=== PATIENT | female | born 2000 | race Caucasian/White ===

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

== ENCOUNTER 2020-02-01 23:04 | Emergency (ER) | payer MEDICAID ==
[~2020-02-01] VITALS: Ht 165.1 cm; Wt 66.3 kg
[2020-02-01 23:13] VITALS: BP 106/70
--- NOTE | 2020-02-01 23:19 | NUR ---
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
== END 2020-02-01 23:21 ==
LOC: ED 23:10
DX: M54.5 Low back pain (principal); Z53.21 Procedure and treatment not carried out due to patient leaving prior to being seen by health care provider

== ENCOUNTER 2020-02-01 23:31 | Outpatient (CLI) | payer MEDICAID ==
[~2020-02-01] VITALS: Ht 175.3 cm; Wt 66.0 kg
[2020-02-02 00:01] LABS: MICROSCOPIC INDICATED
[2020-02-02 00:09] LABS: AMPHETAMINE SCREEN, URINE Negative (Negative); BARBITURATE SCREEN, URINE Negative (Negative); BENZODIAZEPINE SCREEN, URINE Negative (Negative); CANNABINOID SCREEN, URINE Negative (Negative); COCAINE SCREEN, URINE Negative (Negative); METHADONE SCREEN, URINE Negative (Negative); OPIATE SCREEN, URINE Negative (Negative)
== END 2020-02-02 01:20 | disposition home or self-care (01) ==
LOC: LDOP 23:31
PROVIDERS: ATTEND Obstetrics & Gynecology Female Pelvic Medicine and Reconstructive Surgery
DX: Z34.93 Encounter for supervision of normal pregnancy, unspecified, third trimester (principal); Z3A.33 33 weeks gestation of pregnancy
CPT/HCPCS: 59025; 80307; 81001; 87086

== ENCOUNTER 2020-02-02 01:26 | Emergency (ER) | payer MEDICAID | END 2020-02-02 01:38 | LOC: ED 01:30 | DX: M54.9 Dorsalgia, unspecified (principal); Z53.21 Procedure and treatment not carried out due to patient leaving prior to being seen by health care provider | CPT/HCPCS: 59025 ==

== ENCOUNTER 2020-03-17 13:43 | Inpatient (IN) | payer MEDICAID ==
[~2020-03-17] VITALS: Ht 175.3 cm; Wt 69.1 kg
[2020-03-17 19:30] VITALS: BP 125/78
[2020-03-17] MEDS ORDERED: CALCIUM CARBONATE 500 MG TAB.CHEW PO PRN (21:30)
[2020-03-17] MEDS ORDERED: FENTANYL PF 100 MCG/2ML IV PRN (21:30)
[2020-03-17] MEDS ORDERED: METOCLOPRAMIDE 5 MG/ML, 2ML IVPush PRN (21:30)
[2020-03-17] MEDS ORDERED: SODIUM CITRATE/CITRIC ACID 30 ML UDC PO PRN (21:30)
[2020-03-17] MEDS: D5%-LACTATED RINGERS 1,000 ML IV SCH (21:30)
[2020-03-17] MEDS ORDERED: ONDANSETRON 2MG/ML, 2ML IVPush PRN (21:30)
[2020-03-17] MEDS ORDERED: TERBUTALINE 1 MG/ML, 1ML SQ PRN (21:30)
[2020-03-17] MEDS ORDERED: OXYTOCIN 30U/ 0.9% NaCL 500ML 500 ML IV ONE (21:30)
[2020-03-17] MEDS ORDERED: TERBUTALINE 1 MG/ML, 1ML IVPush PRN (21:30)
[2020-03-17] MEDS ORDERED: MISOPROSTOL 25 MCG TABLET VG PRN (21:30)
[2020-03-17] MEDS ORDERED: PLEASE ENTER HEIGHT AND WEIGHT MC SCH (21:30)
[2020-03-17] MEDS ORDERED: LIDOCAINE 1%, 20ML ONE (21:33)
[2020-03-17] MEDS ORDERED: NEWBORN KIT ONE (21:33)
[2020-03-17] MEDS ORDERED: MISOPROSTOL 25 MCG TABLET ONE (21:33)
[2020-03-17] MEDS ORDERED: MISOPROSTOL 200 MCG TABLET ONE (21:33)
[2020-03-17] MEDS ORDERED: OXYTOCIN 30U/ 0.9% NaCL 500ML 500 ML ONE (21:33)
[2020-03-17] MEDS: LACTATED RINGERS 1,000 ML IV SCH (21:39)
[2020-03-17 21:53] LABS: BASOPHILS % (AUTO) 0 % (0-1); EOSINOPHILS % (AUTO) 1 % (1-7); LYMPHOCYTES % (AUTO) 10 % (22-44); MEAN CORPUSCULAR HEMOGLOBIN 22.8 pg (27.0-34.8); MEAN PLATELET VOLUME 10.7 fL (7.4-10.4); MONOCYTES % (AUTO) 8 % (2-9); NEUTROPHILS % (AUTO) 80 % (42-75); PLATELET COUNT 126 x10^3/uL (130-400); RED BLOOD COUNT 4.23 x10^6/uL (3.82-5.3); RED CELL DISTRIBUTION WIDTH 16.6 % (9.6-15.2)
[2020-03-17 22:19] LABS: MD SCAN
[2020-03-18] MEDS ORDERED: ONDANSETRON 2MG/ML, 2ML ONE (00:56)
[2020-03-18] MEDS ORDERED: METOCLOPRAMIDE 5 MG/ML, 2ML ONE (01:52)
[2020-03-18] MEDS ORDERED: FENTANYL PF 100 MCG/2ML ONE ×3 (02:24→05:37)
[2020-03-18] MEDS: FENTANYL PF 100 MCG/2ML IVPush PRN ×3 (02:26→05:40)
[2020-03-18] MEDS: LACTATED RINGERS 1,000 ML IV SCH (05:50)
[2020-03-18] MEDS: D5%-LACTATED RINGERS 1,000 ML IV SCH (05:50)
[2020-03-18] MEDS ORDERED: NEWBORN KIT ONE (06:21)
[2020-03-18] MEDS ORDERED: LIDOCAINE/PF 1.5% EPI 1:200K, 10 ML ONE (07:11)
[2020-03-18] MEDS ORDERED: BUPIVACAINE 0.25% ONE (07:11)
[2020-03-18] MEDS ORDERED: FENTANYL/BUPIV./NS/PF 250 ML EPIDCONT ONE (07:11)
[2020-03-18] MEDS ORDERED: LACTATED RINGERS 1,000 ML IVBOLUS PRN (07:30)
[2020-03-18] MEDS ORDERED: FENTANYL/BUPIV./NS/PF 250 ML EPIDCONT SCH (07:30)
[2020-03-18] MEDS ORDERED: LACTATED RINGERS 1,000 ML IV SCH (07:30)
[2020-03-18] MEDS ORDERED: NALOXONE 0.4 MG/ML, 1ML IVPush PRN (07:30)
[2020-03-18] MEDS ORDERED: EPHEDRINE 50 MG/ML, 1ML IVPush PRN (07:30)
[2020-03-18] MEDS ORDERED: ACETAMINOPHEN 325 MG TABLET PO PRN ×2 (12:30)
[2020-03-18] MEDS ORDERED: METHYLERGONOVINE 0.2 MG/ML IM PRN (12:30)
[2020-03-18] MEDS ORDERED: OXYcodone/APAP 5/325MG TABLET PO PRN (12:30)
[2020-03-18] MEDS ORDERED: SIMETHICONE 80 MG CHEW TAB PO PRN (12:30)
[2020-03-18] MEDS ORDERED: ONDANSETRON 2MG/ML, 2ML IV PRN (12:30)
[2020-03-18] MEDS ORDERED: MISOPROSTOL 200 MCG TABLET PR PRN (12:30)
[2020-03-18] MEDS ORDERED: RHOGAM FROM BLOOD BANK 1 NOTE EA IM/IV ONE (12:30)
[2020-03-18] MEDS ORDERED: CARBOPROST TROMETHAMINE 250 MCG/ML, 1ML IM PRN (12:30)
[2020-03-18] MEDS ORDERED: OXYTOCIN 10 UNITS/ML, 1ML IM PRN (12:30)
[2020-03-18] MEDS ORDERED: CALCIUM CARBONATE 500 MG TAB.CHEW PO PRN (12:30)
[2020-03-18] MEDS ORDERED: TRANEXAMIC ACID 100 MG/ML, 10ML IV ONE (12:30)
[2020-03-18] MEDS: OXYTOCIN 30U/ 0.9% NaCL 500ML 500 ML IV SCH ×6 (12:30→19:40)
[2020-03-18] MEDS ORDERED: DIPH,PERTUSS(ACELL),TET VAC/PF NC IM-VACC PRN (12:30)
[2020-03-18] MEDS ORDERED: OXYTOCIN 30U/ 0.9% NaCL 500ML 500 ML ONE (13:20)
[2020-03-18] MEDS ORDERED: IBUPROFEN 600 MG TABLET ONE (13:20)
[2020-03-18] MEDS: IBUPROFEN 600 MG TABLET PO PRN ×2 (13:21→22:35)
[2020-03-18 16:24] VITALS: BP 114/78
[2020-03-18 19:15] LABS: BASOPHILS % (AUTO) 0 % (0-1); EOSINOPHILS % (AUTO) 0 % (1-7); LYMPHOCYTES % (AUTO) 7 % (22-44); MEAN CORPUSCULAR HEMOGLOBIN 22.7 pg (27.0-34.8); MEAN CORPUSCULAR HGB CONC 31.5 g/dL (32.4-35.8); MEAN PLATELET VOLUME 10.4 fL (7.4-10.4); MONOCYTES % (AUTO) 9 % (2-9); NEUTROPHILS % (AUTO) 84 % (42-75); PLATELET COUNT 121 x10^3/uL (130-400); RED BLOOD COUNT 3.96 x10^6/uL (3.82-5.3); RED CELL DISTRIBUTION WIDTH 16.2 % (9.6-15.2)
[2020-03-18 19:19] LABS: MD NO
[2020-03-18 20:30] VITALS: BP 109/70
[2020-03-18] MEDS: DOCUSATE 100 MG CAPSULE PO PRN (22:35)
[2020-03-19] VITALS: BP 110/67
[2020-03-19 04:00] VITALS: BP 117/76
[2020-03-19] MEDS: IBUPROFEN 600 MG TABLET PO PRN ×2 (05:24→13:58)
[2020-03-19] MEDS: OXYcodone/APAP 5/325MG TABLET PO PRN ×3 (05:25→18:19)
[2020-03-19] MEDS: PRENATAL VIT/IRON/FA 1 EACH TABLET PO SCH (09:44)
[2020-03-19] MEDS: DOCUSATE 100 MG CAPSULE PO PRN (09:44)
[2020-03-19 09:45] VITALS: BP 121/80
[2020-03-19 12:00] VITALS: BP 110/64
[2020-03-19 14:52] LABS: BASOPHILS % (AUTO) 0 % (0-1); EOSINOPHILS % (AUTO) 1 % (1-7); LYMPHOCYTES % (AUTO) 8 % (22-44); MEAN CORPUSCULAR HEMOGLOBIN 22.6 pg (27.0-34.8); MEAN CORPUSCULAR HGB CONC 31.6 g/dL (32.4-35.8); MEAN PLATELET VOLUME 10.7 fL (7.4-10.4); MONOCYTES % (AUTO) 8 % (2-9); NEUTROPHILS % (AUTO) 82 % (42-75); PLATELET COUNT 122 x10^3/uL (130-400); RED BLOOD COUNT 3.86 x10^6/uL (3.82-5.3); RED CELL DISTRIBUTION WIDTH 16.6 % (9.6-15.2)
[2020-03-19 14:59] LABS: MD NO
[2020-03-19 16:00] VITALS: BP 123/75
[2020-03-19 19:35] VITALS: BP 129/81
[2020-03-20] MEDS: IBUPROFEN 600 MG TABLET PO PRN ×2 (01:13→11:31)
[2020-03-20] MEDS: OXYcodone/APAP 5/325MG TABLET PO PRN ×2 (01:14→11:32)
[2020-03-20] MEDS: PRENATAL VIT/IRON/FA 1 EACH TABLET PO SCH (07:38)
[2020-03-20] MEDS: DOCUSATE 100 MG CAPSULE PO PRN (07:38)
[2020-03-20 07:43] VITALS: BP 116/73
[2020-03-20] MEDS ORDERED: IBUP-1222 PO (13:34)
[2020-03-20] MEDS ORDERED: FERR324T5 PO (13:36)
== END 2020-03-20 14:55 | disposition home or self-care (01) | DRG 807 ==
LOC: LDIP 18:56 → 2NW 03-18 16:13
PROVIDERS: ADMIT Obstetrics & Gynecology; ATTEND Obstetrics & Gynecology
PROC: 10E0XZZ Delivery of Products of Conception, External Approach (ICD-10-PCS; principal; 2020-03-18)
PROC: 0UQMXZZ Repair Vulva, External Approach (ICD-10-PCS; 2020-03-18)
PROC: 3E0R3BZ Introduction of Anesthetic Agent into Spinal Canal, Percutaneous Approach (ICD-10-PCS; 2020-03-18)
PROC: 00HU33Z Insertion of Infusion Device into Spinal Canal, Percutaneous Approach (ICD-10-PCS; 2020-03-18)
DX: O69.81X0 Labor and delivery complicated by cord around neck, without compression, not applicable or unspecified (principal); Z37.0 Single live birth; Z3A.39 39 weeks gestation of pregnancy; O70.0 First degree perineal laceration during delivery
CPT/HCPCS: 36415; J7121; 85014; 85018; 85025; 86592; 86850; 86900; 90715; G0378; J2405; J3010; J2590; J2765; J7120

== ENCOUNTER 2020-04-08 12:58 | Emergency (ER) | payer MEDICAID ==
[~2020-04-08] VITALS: Ht 175.3 cm; Wt 59.8 kg
[~2020-04-08 12:58] MED LIST: FERR324T5 PO; IBUP-1222 PO
--- NOTE | 2020-04-08 13:29 | NUR ---
Resting in [facility]. NAD. Will continue to monitor.
[2020-04-08] MEDS ORDERED: KETOROLAC 30 MG/1 ML IM ONE (14:00)
[2020-04-08] MEDS ORDERED: KETOROLAC 30 MG/1 ML ONE (14:19)
--- NOTE | 2020-04-08 14:21 | NUR ---
Toradol admin. No other needs.
[2020-04-08 15:37] VITALS: BP 133/87
--- NOTE | 2020-04-08 15:40 | NUR ---
BREAK RN: PT RESTING ON GURNE. STATES NO COMPLAINTS AT THIS TIME.
== END 2020-04-08 15:58 | disposition home or self-care (01) ==
LOC: ED 13:44
DX: M94.0 Chondrocostal junction syndrome [Tietze] (principal); R94.31 Abnormal electrocardiogram [ECG] [EKG]; I51.7 Cardiomegaly
CPT/HCPCS: 71045; 93005; 96372; 99283; J1885

== ENCOUNTER 2020-04-13 13:29 | Emergency (ER) | payer MEDICAID ==
[~2020-04-13] VITALS: Ht 175.3 cm; Wt 60.8 kg
[2020-04-13 14:49] LABS: BASOPHILS % (AUTO) 1 % (0-1); EOSINOPHILS % (AUTO) 23 % (1-7); LYMPHOCYTES % (AUTO) 15 % (22-44); MEAN CORPUSCULAR HEMOGLOBIN 22.7 pg (27.0-34.8); MEAN PLATELET VOLUME 10.4 fL (7.4-10.4); MONOCYTES % (AUTO) 6 % (2-9); NEUTROPHILS % (AUTO) 55 % (42-75); PLATELET COUNT 172 x10^3/uL (130-400); RED BLOOD COUNT 5.13 x10^6/uL (3.82-5.3); RED CELL DISTRIBUTION WIDTH 18.6 % (9.6-15.2)
[2020-04-13 15:00] LABS: ALANINE AMINOTRANSFERASE 22 U/L (12-78); ALBUMIN 3.4 g/dL (3.4-5.0); ANION GAP 6 mmol/L (5-15); CALCIUM 8.7 mg/dL (8.5-10.1); CHLORIDE 111 mmol/L (98-107)
[2020-04-13 15:02] LABS: ALKALINE PHOSPHATASE 111 U/L (45-117); BILIRUBIN,TOTAL 0.8 mg/dL (0.2-1.0)
[2020-04-13 15:29] LABS: MD SCAN
--- NOTE | 2020-04-13 16:00 | NUR ---
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
--- NOTE | 2020-04-13 16:20 | NUR ---
PT RESTING IN [facility], NO COMPLAINTS AT THIS TIME. FIANCE AT BEDSIDE.
--- NOTE | 2020-04-13 17:13 | NUR ---
TASK RN, COVERING MEAL BREAK. PT FOR RECHECK. ADD ON ORDER RAPID STREP NOTED
[2020-04-13] MEDS ORDERED: DEXAMETHASONE 4 MG TABLET ONE (17:44)
[2020-04-13] MEDS ORDERED: DEXAMETHASONE 4 MG TABLET PO ONE (18:00)
[2020-04-13 18:26] VITALS: BP 121/87
== END 2020-04-13 18:29 | disposition home or self-care (01) ==
LOC: ED 17:19
DX: J02.8 Acute pharyngitis due to other specified organisms (principal); B97.89 Other viral agents as the cause of diseases classified elsewhere; R06.00 Dyspnea, unspecified; R94.31 Abnormal electrocardiogram [ECG] [EKG]; R07.89 Other chest pain
CPT/HCPCS: 36415; 71045; 80053; 85025; 87081; 87880; 93005; 99285

== ENCOUNTER 2020-04-23 14:01 | Emergency (ER) | payer MEDICAID ==
[~2020-04-23] VITALS: Ht 175.3 cm; Wt 58.2 kg
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
[2020-04-23 15:52] LABS: BASOPHILS % (AUTO) 1 % (0-1); EOSINOPHILS % (AUTO) 6 % (1-7); LYMPHOCYTES % (AUTO) 22 % (22-44); MEAN CORPUSCULAR HGB CONC 31.3 g/dL (32.4-35.8); MEAN PLATELET VOLUME 10.5 fL (7.4-10.4); MONOCYTES % (AUTO) 7 % (2-9); NEUTROPHILS % (AUTO) 65 % (42-75); PLATELET COUNT 158 x10^3/uL (130-400); RED BLOOD COUNT 5.11 x10^6/uL (3.82-5.3)
[2020-04-23 15:54] LABS: ALBUMIN 3.7 g/dL (3.4-5.0); ANION GAP 6 mmol/L (5-15); CALCIUM 8.6 mg/dL (8.5-10.1); CHLORIDE 111 mmol/L (98-107); CREATININE 0.67 mg/dL (0.55-1.02)
[2020-04-23 15:55] LABS: MD NO
--- NOTE | 2020-04-23 16:02 | NUR ---
PT SITTING UPRIGHT ON GURNEY ON CELL PHONE, S.O. AT BEDSIDE. NAD, VSS. PT DENIES ANY NEEDS AT THIS TIME. CALL LIGHT AND PERSONAL BELONGINGS WITHIN REACH.
--- NOTE | 2020-04-23 16:54 | NUR ---
S.O. OF PT CONTINUALLY PRESSING CALL LIGHT FOR PT AND REQUESTING "MORE PADS, THE BLEEDING KEEPS HAPPENING, ITS WORSE WHEN SHE GETS UP, SHE JUST GOT UP TO THE BATHROOM AND MORE KEPT HAPPENING". PT PROVIDED ADDITIONAL PADS PER REQUEST AND GOWN CHANGE. AWARE OF PT CONCERN. VSSHERIE Pereyra NOTED. PT DENIES ANY ADDITIONAL NEEDS AT THIS TIME. WILL CONTINUE TO MONITOR.
[2020-04-23] MEDS ORDERED: MEDROXYPROGESTERONE ACETATE 150 MG/ML IM ONE (17:30)
[2020-04-23 17:47] VITALS: BP 116/77
--- NOTE | 2020-04-23 17:57 | NUR ---
Patient given discharge instructions and they have confirmed that they understand the instructions. Patient ambulatory with steady gait.
== END 2020-04-23 18:01 | disposition home or self-care (01) ==
LOC: ED 15:18
DX: N93.8 Other specified abnormal uterine and vaginal bleeding (principal)
CPT/HCPCS: 36415; 80048; 82040; 84703; 85025; 96372; 99283; J1050

== ENCOUNTER 2020-05-19 17:52 | Emergency (ER) | payer MEDICAID ==
[~2020-05-19] VITALS: Ht 175.3 cm; Wt 57.1 kg
[2020-05-19 19:09] LABS: BASOPHILS % (AUTO) 1 % (0-1); EOSINOPHILS % (AUTO) 2 % (1-7); LYMPHOCYTES % (AUTO) 19 % (22-44); MEAN CORPUSCULAR HGB CONC 32.2 g/dL (32.4-35.8); MEAN PLATELET VOLUME 10.7 fL (7.4-10.4); MONOCYTES % (AUTO) 5 % (2-9); NEUTROPHILS % (AUTO) 73 % (42-75); PLATELET COUNT 204 x10^3/uL (130-400); RED BLOOD COUNT 5.18 x10^6/uL (3.82-5.3); RED CELL DISTRIBUTION WIDTH 18.6 % (9.6-15.2)
[2020-05-19 19:11] LABS: MD NO
[2020-05-19 19:17] LABS: ALBUMIN 4.1 g/dL (3.4-5.0); ANION GAP 6 mmol/L (5-15); CHLORIDE 112 mmol/L (98-107); CREATININE 0.83 mg/dL (0.55-1.02)
--- NOTE | 2020-05-19 20:54 | NUR ---
PT CAME INTO ED TONIGHT WITH COMPLAINTS OF A HEADACHE AND A "SMALL BUMP ON MY BACK THATS PAINFUL". PT DENIES AURA AND LIGHT SENSITIVITY. PLACED ON SPO2/BP/ECG MONITORING AT THIS TIME. NAD, AT BS. CALL LIGHT ON LAP, BED IN LOWEST, WCTM.
[2020-05-19 21:23] VITALS: BP 139/92
--- NOTE | 2020-05-19 21:23 | NUR ---
Patient/SPOUSE given discharge instructions and they have confirmed that they understand the instructions. Patient ambulatory with steady gait. NAD, DENIES ADDITIONAL QUESTIONS OR NEEDS, PT LEFT NO PERSONAL BELONGINGS IN ROOM UPON DC.
== END 2020-05-19 21:35 | disposition home or self-care (01) ==
LOC: ED 21:06
DX: S16.1XXA Strain of muscle, fascia and tendon at neck level, initial encounter (principal); R51.9 Headache, unspecified; M79.604 Pain in right leg; M54.5 Low back pain; R50.9 Fever, unspecified; V49.9XXA Car occupant (driver) (passenger) injured in unspecified traffic accident, initial encounter; Y93.89 Activity, other specified; Y92.89 Other specified places as the place of occurrence of the external cause; Y99.8 Other external cause status
CPT/HCPCS: 36415; 71045; 80048; 82040; 85025; 93005; 99285

== ENCOUNTER 2020-05-23 01:51 | Emergency (ER) | payer MEDICAID ==
[~2020-05-23] VITALS: Ht 175.3 cm; Wt 58.0 kg
[2020-05-23 01:53] VITALS: BP 141/90
--- NOTE | 2020-05-23 02:20 | NUR ---
PT TO IMAGING.
--- NOTE | 2020-05-23 02:28 | NUR ---
PT STATES DIZZINESS "STARED A COUPLE HOURS AFTER SHE LEFT THE ER." FRIEND AT BEDSIDE STATED "ON SATURDAY." PT SITTING UPRIGHT IN BED, NADN. RESPIRATIONS EVEN AND UNLABORED.
--- NOTE | 2020-05-23 03:26 | NUR ---
ERP BACK TO BEDSIDE TO UPDATE PT ON POC.
== END 2020-05-23 03:34 | disposition home or self-care (01) ==
LOC: ED 02:04
DX: R51.9 Headache, unspecified (principal); R42 Dizziness and giddiness
CPT/HCPCS: 70450; 93005; 99284

== ENCOUNTER 2020-06-22 01:45 | Emergency (ER) | payer MEDICAID ==
[~2020-06-22] VITALS: Ht 165.1 cm; Wt 57.6 kg
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
[2020-06-22] MEDS ORDERED: MAALOX/HYOSCYAMINE/LIDOCAINE 45 ML BTL ONE (02:13)
--- NOTE | 2020-06-22 02:16 | NUR ---
PT MEDICATED PER MAR TOLERATED WELL. XRAY AT BEDSIDE AT THIS TIME
[2020-06-22] MEDS ORDERED: MAALOX/HYOSCYAMINE/LIDOCAINE 45 ML BTL PO ONE (02:30)
[2020-06-22 03:03] VITALS: BP 120/84
--- NOTE | 2020-06-22 03:04 | NUR ---
Patient given discharge instructions and they have confirmed that they understand the instructions. Patient ambulatory with steady gait. NAD, DENIES ADDITIONAL QUESTIONS OR NEEDS AT THIS TIME. VSS. NO PERSONAL BELONGINGS LEFT IN ROOM AFTER DC.
== END 2020-06-22 03:06 | disposition home or self-care (01) ==
LOC: ED 02:30
DX: K29.00 Acute gastritis without bleeding (principal); R07.89 Other chest pain; R06.02 Shortness of breath; R51.9 Headache, unspecified
CPT/HCPCS: 71045; 93005; 99283

== ENCOUNTER 2020-07-03 01:35 | Emergency (ER) | payer MEDICAID ==
[~2020-07-03] VITALS: Ht 175.3 cm; Wt 58.2 kg
[2020-07-03 01:44] VITALS: BP 136/90
== END 2020-07-03 03:47 | disposition home or self-care (01) ==
LOC: ED 03:15
DX: M79.661 Pain in right lower leg (principal)
CPT/HCPCS: 99281; 99282

== ENCOUNTER 2020-08-07 15:08 | Emergency (ER) | payer MEDICAID ==
[~2020-08-07] VITALS: Ht 175.3 cm; Wt 58.5 kg
[2020-08-07 15:11] VITALS: BP 141/91
[2020-08-07 15:40] LABS: BASOPHILS % (AUTO) 1 % (0-1); EOSINOPHILS % (AUTO) 19 % (1-7); LYMPHOCYTES % (AUTO) 18 % (22-44); MEAN CORPUSCULAR HEMOGLOBIN 23.7 pg (27.0-34.8); MEAN CORPUSCULAR HGB CONC 32.5 g/dL (32.4-35.8); MEAN PLATELET VOLUME 10.6 fL (7.4-10.4); MONOCYTES % (AUTO) 8 % (2-9); NEUTROPHILS % (AUTO) 53 % (42-75); PLATELET COUNT 171 x10^3/uL (130-400); RED BLOOD COUNT 5.19 x10^6/uL (3.82-5.3); RED CELL DISTRIBUTION WIDTH 14.8 % (9.6-15.2)
[2020-08-07 15:42] LABS: MD NO
--- NOTE | 2020-08-07 15:42 | NUR ---
PT AMBULATED TO RESTROOM WITH STEADY GAIT TO PROVIDE URINE SAMPLE. UA COLLECTED AND SENT TO LAB.
[2020-08-07 15:50] LABS: MICROSCOPIC INDICATED
[2020-08-07 15:51] LABS: ALANINE AMINOTRANSFERASE 22 U/L (12-78); ALBUMIN 3.6 g/dL (3.4-5.0); ANION GAP 7 mmol/L (5-15); CALCIUM 8.4 mg/dL (8.5-10.1); CHLORIDE 111 mmol/L (98-107); CREATININE 0.68 mg/dL (0.55-1.02)
[2020-08-07 15:56] LABS: ALKALINE PHOSPHATASE 70 U/L (45-117); BILIRUBIN,TOTAL 1.4 mg/dL (0.2-1.0); TOTAL PROTEIN 7.2 g/dL (6.4-8.2)
--- NOTE | 2020-08-07 16:17 | NUR ---
MD AT BEDSIDE TO UPDATE PT ON POC.
== END 2020-08-07 16:50 | disposition home or self-care (01) ==
LOC: ED 15:33
DX: R10.84 Generalized abdominal pain (principal); R51.9 Headache, unspecified
CPT/HCPCS: 36415; 80053; 81001; 83690; 84703; 85025; 99283

== ENCOUNTER 2020-12-27 15:06 | Emergency (ER) | payer MEDICAID ==
[~2020-12-27] VITALS: Ht 175.3 cm; Wt 56.0 kg
--- NOTE | 2020-12-27 15:21 | NUR ---
mariela GERMAN from [facility], last night pt was given haladol in the ER for anxiety when they were treating her UTI. gave her 12.5mg benadryl at night. pt arrived at [facility] and then was unable to move neck, stiff L leg, and had anxiety. [facility] gave benadryl and feels better, but now feels shaky.
[2020-12-27] MEDS ORDERED: LORazepam 1MG TABLET ONE (16:13)
--- NOTE | 2020-12-27 16:17 | NUR ---
TINY RN: MEDICATED PER ORDERS.
[2020-12-27] MEDS ORDERED: LORazepam 1MG TABLET PO ONE (16:30)
--- NOTE | 2020-12-27 16:49 | NUR ---
TINY RN: ATTEMPTED TO DISCHARGE PT, PT C/O OF NAUSEA AND INCREASE SHAKING, REPORTED TO PRIMARY RN, ROGERIO FLORES.
--- NOTE | 2020-12-27 17:17 | NUR ---
PT OK FOR D/C, PT STATES SHE FEELS "OK" TO GO HOME. PT VERBALIZED UNDERSTANDING OF D/C ORDERS, HAS STEADY GAIT UPON D/C.
[2020-12-27 17:19] VITALS: BP 119/78
== END 2020-12-27 17:21 | disposition home or self-care (01) ==
LOC: ED 15:34
DX: M54.2 Cervicalgia (principal); T43.4X5A Adverse effect of butyrophenone and thiothixene neuroleptics, initial encounter
CPT/HCPCS: 99283

== ENCOUNTER 2021-02-13 20:30 | Emergency (ER) | payer MEDICAID ==
[~2021-02-13] VITALS: Ht 175.3 cm; Wt 58.5 kg
[2021-02-13 20:39] VITALS: BP 120/81
== END 2021-02-14 01:26 | disposition left against medical advice (07) ==
LOC: ED 20:45
DX: R51.9 Headache, unspecified (principal); M54.2 Cervicalgia
CPT/HCPCS: 99281